=== PATIENT | female | born 1960 | race Caucasian/White ===

== ENCOUNTER 2021-02-09 10:43 | Emergency (ER) | payer OTHER ==
[~2021-02-09 10:43] MED LIST: AMARYL 2MG TABLE2 MG PO; BUSPIRONE HCL15 MG PO; EFFEXOR XR150 MG PO; ISORDIL TAB 3030 MG PO; LISINOPRIL40 MG PO; METOPROLOL TART50 MG PO; MIRAPEX0.125 MG PO; OMNICEF 300 MG300 MG PO; PREDNISONE20 MG PO; PROVENTIL HFA6.7 GM INH; ZITHROMAX250 MG PO; ZITHROMAX500 MG PO
[2021-02-09 12:51] LABS: HEMOGLOBIN 13.4 gm/dl (12.3-15.3); RED BLOOD COUNT 4.7 M/UL (4.00-5.10); WHITE BLOOD COUNT 4.6 K/UL (4.5-11.0)
[2021-02-09 13:17] LABS: BUN/CREATININE RATIO 18 (0-10)
[2021-02-09] MEDS ORDERED: FLORASTOR250 MG PO (16:12)
[2021-02-09] MEDS ORDERED: BENTYL 20MG TAB20 MG PO (16:12)
[2021-02-09] MEDS ORDERED: ZOFRAN ODT 4 MG4 MG SL (16:12)
[2021-03-23] MEDS ORDERED: DOXYCYCLINE HY100 MG PO (10:20)
[2021-03-23] MEDS ORDERED: MEDROL DOSEPAK 24 MG PO (10:21)
== END 2021-02-09 16:15 | disposition home or self-care (01) ==
LOC: ER1 10:43
DX: R11.2 Nausea with vomiting, unspecified (principal); R19.7 Diarrhea, unspecified; J44.9 Chronic obstructive pulmonary disease, unspecified; I48.91 Unspecified atrial fibrillation; Z88.0 Allergy status to penicillin; Z88.5 Allergy status to narcotic agent; F17.200 Nicotine dependence, unspecified, uncomplicated
CPT/HCPCS: 71045; 80053; 83690; 85025; 93005; 99284; J2270; J2405; Q9967

== ENCOUNTER 2021-03-24 06:42 | Inpatient (IN) | payer OTHER ==
[~2021-03-24] VITALS: Ht 170.2 cm; Wt 96.2 kg
[~2021-03-24 06:42] MED LIST changes: +BENTYL 20MG TAB20 MG PO; +DOXYCYCLINE HY100 MG PO; +FLORASTOR250 MG PO; +MEDROL DOSEPAK 24 MG PO; +ZOFRAN ODT 4 MG4 MG SL
[2021-03-24 07:48] LABS: HEMOGLOBIN 13.7 gm/dl (12.3-15.3); RED BLOOD COUNT 5.05 M/UL (4.00-5.10); WHITE BLOOD COUNT 6.2 K/UL (4.5-11.0)
[2021-03-24 08:26] LABS: BUN/CREATININE RATIO 10 (0-10)
[2021-03-24] MEDS ORDERED: SYMBICORT 160-1 INHA INH (10:21)
[2021-03-24] MEDS ORDERED: HYDRALAZINE HCL25 MG PO (10:22)
[2021-03-24] MEDS ORDERED: ELAVIL 50 MG TA50 MG PO (11:07)
[2021-03-24] MEDS ORDERED: CYCLOBENZAPRINE5 MG PO (11:08)
[2021-03-24] MEDS ORDERED: NORVASC10 MG PO (11:08)
[2021-03-24] MEDS ORDERED: VOLTAREN ARTHRI20 GM TOP (11:09)
[2021-03-24] MEDS ORDERED: PERCOCET 10-321 EACH PO (16:50)
[2021-03-24] MEDS ORDERED: CELEBREX200 MG PO (16:52)
[2021-03-24] MEDS ORDERED: OMEPRAZOLE20 M1 PO (16:56)
[2021-03-24] MEDS ORDERED: NEURONTIN800 MG PO (17:00)
[2021-03-25 04:41] LABS: HEMOGLOBIN 12.8 gm/dl (12.3-15.3); RED BLOOD COUNT 4.64 M/UL (4.00-5.10); WHITE BLOOD COUNT 5.2 K/UL (4.5-11.0)
[2021-03-25 04:55] LABS: BUN/CREATININE RATIO 15 (0-10)
[2021-03-25] MEDS ORDERED: IPRAT-ALBUT 0.5-3 ML NEB (14:43)
[2021-03-25] MEDS ORDERED: MEDROL DOSEPAK 24 MG PO (14:43)
[2021-03-25] MEDS ORDERED: CHILDREN'S ASPI81 MG PO (15:00)
== END 2021-03-25 15:26 | disposition home or self-care (01) | DRG 177 ==
LOC: ER1 06:42 → CDU 08:52
PROVIDERS: Emergency Medicine; ADMIT Internal Medicine
PROC: 3E0333Z Introduction of Anti-inflammatory into Peripheral Vein, Percutaneous Approach (ICD-10-PCS; 2021-03-24)
PROC: 8E0ZXY6 Isolation (ICD-10-PCS; principal; 2021-03-25)
DX: U07.1 COVID-19 (principal); J12.82 Pneumonia due to coronavirus disease 2019; J44.1 Chronic obstructive pulmonary disease with (acute) exacerbation; E87.1 Hypo-osmolality and hyponatremia; J44.0 Chronic obstructive pulmonary disease with (acute) lower respiratory infection; E87.6 Hypokalemia; R11.2 Nausea with vomiting, unspecified; E11.9 Type 2 diabetes mellitus without complications; E78.5 Hyperlipidemia, unspecified; I10 Essential (primary) hypertension; G89.29 Other chronic pain; M79.7 Fibromyalgia; R19.7 Diarrhea, unspecified; F17.210 Nicotine dependence, cigarettes, uncomplicated; Z79.4 Long term (current) use of insulin; Z71.6 Tobacco abuse counseling; Z79.01 Long term (current) use of anticoagulants; Z79.82 Long term (current) use of aspirin; Z90.710 Acquired absence of both cervix and uterus
CPT/HCPCS: 36600; 71045; 80048; 80053; 82550; 82553; 82803; 82962; 83605; 83874; 83880; 84484; 85025; 85379; 87040; 93005; 94640; 94664; 94760; 99285; J0696; J1100; J1650; J2405; J2920; J7040; U0002

== ENCOUNTER → 2021-06-26 | Outpatient (CLI) | payer OTHER ==
[~2021-06-26] MED LIST changes: +CELEBREX200 MG PO; +CHILDREN'S ASPI81 MG PO; +CYCLOBENZAPRINE5 MG PO; +ELAVIL 50 MG TA50 MG PO; +HYDRALAZINE HCL25 MG PO; +IPRAT-ALBUT 0.5-3 ML NEB; +NEURONTIN800 MG PO; +NORVASC10 MG PO; +OMEPRAZOLE20 M1 PO; +PERCOCET 10-321 EACH PO; +SYMBICORT 160-1 INHA INH; +VOLTAREN ARTHRI20 GM TOP
== END ==
LOC: US 10:48 → EXRD 10:48
DX: I10 Essential (primary) hypertension (principal)
CPT/HCPCS: 93930

== ENCOUNTER → 2021-10-02 | Outpatient (CLI) | payer OTHER | LOC: CT 13:25 | DX: I73.89 Other specified peripheral vascular diseases (principal); I70.0 Atherosclerosis of aorta; I31.3 Pericardial effusion (noninflammatory); J43.9 Emphysema, unspecified; R91.8 Other nonspecific abnormal finding of lung field | CPT/HCPCS: 36415; 71275; 82565; Q9967 ==